=== PATIENT | male | born 1985 | race Caucasian/White ===

== ENCOUNTER 2016-12-03 08:24 | Emergency (ER) | payer MEDICAID ==
[2016-12-03 10:08] VITALS: BP 124/72
== END 2016-12-03 10:18 | disposition home or self-care (01) ==
LOC: ED 08:24
DX: S46.912A Strain of unspecified muscle, fascia and tendon at shoulder and upper arm level, left arm, initial encounter (principal); X58.XXXA Exposure to other specified factors, initial encounter; Y93.89 Activity, other specified; Y92.89 Other specified places as the place of occurrence of the external cause; Y99.8 Other external cause status